=== PATIENT | female | born 1975 | race Caucasian/White ===

== ENCOUNTER 2018-05-28 23:18 | Emergency (ER) | payer MEDICAID ==
--- NOTE | 2018-05-28 23:23 | EDM.PDOC ---
ED HPI GENERAL MEDICAL PROBLEM - General Chief Complaint: General Stated Complaint: vaginal foreign body Time Seen by Provider: 05/28/18 23:20 Source of Information: Reports: Patient, Old Records ([facility] EMR. No paper hospital chart available.) History Limitations: Reports: No Limitations - History of Present Illness INITIAL COMMENTS - FREE TEXT/NARRATIVE: The patient was brought to the emergency room via private automobile by her significant other for evaluation of nonspecific 2/10 pelvic cramping with some discharge possibly secondary to a lost tampon since 05/23. She has also had some constipation since then with 1 OTC Aleve taken one hour prior to arrival. No recent history of other abdominal pain, heartburn, nausea, diarrhea, melena, gross hematochezia, or any food intolerance, including fatty foods, etc.. She has not taken any medications for her constipation. The patient denies any current UTI symptoms, gross hematuria, or other UTI symptoms. LMP was normal about 10 days ago with patient having intercourse since that time with no significant discomfort, although she does have a "metallic taste" with each episode of intercourse since that time. The patient also denies any recent fever , cough, wheezing, dyspnea, etc.. Onset: Gradual Onset Date: 05/23/18 Location: Reports: Abdomen, Pelvis. Denies: Head, Face, Neck, Chest, Back, Radiates to Quality: Reports: Other (Cramping) Severity: Mild Improves with: Reports: None Worsens with: Reports: None Context: Reports: Other (As above). Denies: Sick Contact Associated Symptoms: Denies: Confusion, Chest Pain, Cough, Diaphoresis, Fever/ Chills, Headaches, Loss of Appetite, Nausea/Vomiting, Rash, Shortness of Breath , Weakness Treatments [employer]: Reports: NSAIDS (As above) Pelvic Pain Score (Numeric/FACES): 2 - Related Data Allergies Allergy/AdvReac Type Severity Reaction Status Date / Time ibuprofen Allergy Rash Verified 05/28/18 23:28 Home Meds: Home Meds ARIPiprazole [Abilify Maintena] 200 mg IM ASDIRECTED 05/28/18 [History] FLUoxetine HCl [Prozac] 40 mg PO DAILY 05/28/18 [History] Naproxen Sodium [Aleve] 220 mg PO Q12HR PRN 05/28/18 [History] Topiramate [Topamax] 50 mg PO BID 05/28/18 [History] busPIRone [Buspar] 15 mg PO BID 05/28/18 [History] Past Medical History HEENT History: Reports: Impaired Vision Other HEENT History: Patient wears glasses Gastrointestinal History: Reports: GERD, PUD LMP (Approximate): 1 Week Neurological History: Denies: Seizure Psychiatric History: Reports: Anxiety, Bipolar, Depression - Past Surgical History Female Surgical History: Reports: Tubal Ligation, Other (See Below) Other Female Surgeries/Procedures: Bilateral tubal ligation in about 2014 Social & Family History - Tobacco Use Smoking Status *Q: Current Every Day Smoker Tobacco Use Within Last Twelve Months: Cigarettes Years of Tobacco use: 28 Packs/Tins Daily: 0.5 Used Tobacco, but Quit: No Month/Year Tobacco Last Used: Patient started smoking at age 15 maximum use of 1 packs per day Smoking Cessation Information Provided To Patient: Yes Second Hand Smoke Exposure: No Second Hand Smoke Education Provided: No - Living Situation & Occupation Living situation: Reports: with Significant Other Occupation: Unemployed ED ROS GENERAL - Review of Systems Review Of Systems: ROS reveals no pertinent complaints other than HPI. ED EXAM, GENERAL - Physical Exam Exam: See Below Exam Limited By: No Limitations General Appearance: Alert, WD/WN, No Apparent Distress, Anxious (Moderate) Head: Atraumatic, Normocephalic Neck: Normal Inspection, Supple, Non-Tender, Full Range of Motion. No: Lymphadenopathy (L), Lymphadenopathy (R), Thyromegaly Respiratory/Chest: No Respiratory Distress, Lungs Clear, Normal Breath Sounds, No Accessory Muscle Use, Chest Non-Tender. No: Pleural Rub, Retractions Cardiovascular: Normal Peripheral Pulses, Regular Rate, Rhythm, No Edema, No Gallop, No JVD, No Murmur, No Rub. No: Gallop/S3, Gallop/S4, Friction Rub Peripheral Pulses: 2+: Radial (L), Radial (R) GI/Abdominal: Normal Bowel Sounds, Soft, Non-Tender, No Organomegaly, No Distention, No Abnormal Bruit, No Mass, Pelvis Stable. No: Guarding (Female) Exam: Normal External Exam, Normal Speculum Exam, Normal Bimanual Exam, Other (No foreign body noted). No: Adnexal Tenderness, Cervical Discharge , Cervical Fluid, Cervical Lesions, Cervix Motion Tenderness, Enlarged Uterus, Uterine Tenderness, Vaginal Bleeding, Vaginal Discharge, Vaginal Lesions, Vaginal Tears Rectal (Female) Exam: Deferred Back Exam: Normal Inspection, Full Range of Motion. No: CVA Tenderness (L), CVA Tenderness (R), Muscle Spasm Extremities: Normal Inspection, Normal Range of Motion, Non-Tender, No Pedal Edema, Normal Capillary Refill. No: Mariusz's Sign Neurological: Alert, Oriented, CN II-XII Intact, Normal Cognition, Normal Gait, No Motor/Sensory Deficits Psychiatric: Anxious (Moderate), Depressed Mood (Borderline) Skin Exam: Warm, Dry, Intact, Normal Color, No Rash, Tattoo(s). No: Wound/ Incision Lymphatic: No Adenopathy Course - Vital Signs Last Recorded V/S: Last Vital Signs Temp 36.7 C 05/28/18 23:19 Pulse 78 05/28/18 23:19 Resp 16 05/28/18 23:19 BP 118/68 05/28/18 23:19 Pulse Ox 100 05/28/18 23:19 Vital Signs - 24 hr 05/28/18 23:19 Temperature [ 36.7 C Oral] Pulse, 78 Peripheral [ Pulse Oximetry] Respiratory 16 Rate Blood Pressure 118/68 [Right Upper Arm] O2 Sat by Pulse 100 Oximetry - Orders/Labs/Meds Orders: Active Orders 24 hr Category Date Time Status Obtain Past Medical Record [OM.PC] Routine Oth 05/28/18 23:23 Active Labs: None Meds: None - Radiology Interpretation Free Text/Narrative:: None Departure - Departure Time of Disposition: 00:05 Disposition: Home, Self-Care 01 Condition: Good Clinical Impression: Peptic reflux disease, Tobacco abuse counseling, Mixed anxiety depressive disorder, Pelvic pain Constipation Qualifiers: Constipation type: other constipation type Qualified Code(s): K59.09 - Other constipation - Discharge Information *PRESCRIPTION DRUG MONITORING PROGRAM REVIEWED*: Not Applicable *COPY OF PRESCRIPTION DRUG MONITORING REPORT IN PATIENT JUDAH: Not Applicable Instructions: Health Risks of Smoking, Smoking Tobacco Information, Constipation, Adult, [id number] Referrals: PCP,None [Primary Care Provider] - Forms: ED Department Discharge Additional Instructions: 1. Follow up with your regular provider in 10-14 days as needed, if symptoms persist. Bring these discharge instructions with you to that visit.. 2. Use vaginal lubricants with intercourse as discussed 3. Stop all tobacco use RACHELL as directed/per provided information and consider contacting Quit LIne, etc.. 4. Encourage oral fluids with high fiber diet as directed. 5. MiraLAX in the a.m., if you have not had a bowel movement by that time. May repeat daily until excellent results. Do not use other constipation medicines such as milk of magnesia on a regular basis, etc. - Problem List & Annotations (1) Pelvic pain SNOMED Code(s): 60021948 Code(s): R10.2 - PELVIC AND PERINEAL PAIN Status: Acute Priority: High Current Visit: No Onset Date: ~05/23/18 Annotation/Comment:: Nonspecific pelvic discomfort with no evidence of retained tampon, foreign body, vaginal discharge, infection, etc. Symptomatic relief as per discharge instructions. (2) Constipation SNOMED Code(s): 09273826 Code(s): K59.00 - CONSTIPATION, UNSPECIFIED Status: Chronic Priority: High Current Visit: No Onset Date: ~05/23/18 Annotation/Comment:: No previous history of significant constipation. Clinical exam appears normal. Symptomatic relief for now as per discharge instructions. Qualifiers: Constipation type: other constipation type Qualified Code(s): K59.09 - Other constipation (3) Mixed anxiety depressive disorder SNOMED Code(s): 788818250 Code(s): F41.8 - OTHER SPECIFIED ANXIETY DISORDERS Status: Chronic Priority: Medium Current Visit: No Annotation/Comment:: Moderate control based on today's exam. No suicidal ideation. Continue to observe closely by her regular providers. (4) Peptic reflux disease SNOMED Code(s): 855325216 Code(s): K21.9 - GASTRO-ESOPHAGEAL REFLUX DISEASE WITHOUT ESOPHAGITIS Status: Chronic Priority: Medium Current Visit: No Annotation/Comment:: Stable by patient history with no current medications required. (5) Tobacco abuse counseling SNOMED Code(s): 023780028, 906792295, 482264339 Code(s): Z71.6 - TOBACCO ABUSE COUNSELING Status: Chronic Priority: Medium Current Visit: No Annotation/Comment:: Tobacco cessation strongly encouraged with information provided. - Problem List Review Problem List Initiated/Reviewed/Updated: Yes - My Orders Last 24 Hours: My Active Orders 05/28/18 23:23 Obtain Past Medical Record [OM.PC] Routine - Assessment/Plan Last 24 Hours: My Active Orders 05/28/18 23:23 Obtain Past Medical Record [OM.PC] Routine Assessment:: As above. Plan: As above. Extensive precautions were given to the patient, who is in agreement with the treatment plan. See Patient Instructions for further treatment and plan.
== END 2018-05-29 00:04 | disposition home or self-care (01) ==
LOC: LL.ED 23:18
DX: K59.09 Other constipation (principal); K21.9 Gastro-esophageal reflux disease without esophagitis; F41.8 Other specified anxiety disorders; Z71.6 Tobacco abuse counseling; Z88.6 Allergy status to analgesic agent; F17.210 Nicotine dependence, cigarettes, uncomplicated
CPT/HCPCS: 99282